=== PATIENT | female | born 1995 | race Caucasian/White ===

== ENCOUNTER 2016-09-13 03:49 | Emergency (ER) | payer BC, OTHER ==
[~2016-09-13] VITALS: Ht 172.7 cm; Wt 98.0 kg
[~2016-09-13 03:49] MED LIST: PREN1CHW7 PO
[2016-09-13 03:53] VITALS: BP 128/87; PULSE 97; RESP 16; TEMP 98.6; O2SAT 98
[2016-09-13 04:29] VITALS: O2SAT 100
[2016-09-13 04:34] LABS: AUTOMATED NEUTROPHIL # 6.7 TH/MM3 (1.8-7.7); BASOPHIL % 0.4 % (0.0-2.0); EOSINOPHIL # 0.2 TH/MM3 (0-0.4); EOSINOPHIL % 1.5 % (0.0-4.0); HEMATOCRIT 32.4 % (35.0-46.0); LYMPH % 20.8 % (9.0-44.0); LYMPHOCYTE # 2.1 TH/MM3 (1.0-4.8); MEAN CELL VOLUME 94.2 FL (80.0-100.0); MEAN CORPUSCULAR HEMOGLOBIN 32.1 PG (27.0-34.0); MONO % 11.6 % (0.0-8.0); NEUT % 65.7 % (16.0-70.0); PLATELET COUNT 150 TH/MM3 (150-450); RED BLOOD COUNT 3.43 MIL/MM3 (4.00-5.30); RED CELL DISTRIBUTION WIDTH 13.4 % (11.6-17.2); WHITE BLOOD COUNT 10.2 TH/MM3 (4.0-11.0)
--- NOTE | 2016-09-13 04:34 | PD ---
HPI Chief Complaint: Edema Time Seen by Provider: 04:07 Travel History International Travel<30 days: No Contact w/Intl Traveler<30days: No Traveled to known affect area: No History of Present Illness HPI The patient is a 20 year old female who is currently at 34 weeks gestation who presents to the [facility] emergency department with a history of right lower extremity swelling and calf pain. The patient reports that the swelling began 3 weeks ago, however over the last day she's noticed a progressively getting worse and associated with an aching sensation with walking. The patient reports that it feels like a charley horse in her calf. She reports that her RIPPER OPERATOR is at the [facility] practice. She denies having any chest pain. She reports that she does have some shortness of breath with exertion that she attributes to the and pressure on her diaphragm. She denies having any vaginal bleeding or vaginal discharge. She denies having any abdominal pain. She reports that she has been feeling the baby move well. She denies having any recent fevers, cough, congestion, neck pain, vomiting, diarrhea, urinary symptoms, or neurologic symptoms. [facility] Past Medical History Narrative Medical The patient's past medical history is significant for anxiety. Medical History: Denies Significant Hx Diminished Hearing: No Influenza Vaccination: No ?: : 1 : 1 Past Surgical History Narrative Surgical The patient's past surgical history is reportedly none. Social History Alcohol Use: No Tobacco Use: No Substance Use: No Allergies-Medications (Allergen,Severity, Reaction): Coded Allergies: Codeine (Unverified Allergy, Severe, Rash, 09/13/16) ALSO NAUSEA Reported Meds & Prescriptions Reported Meds & Active Scripts Active Macrobid (Nitrofurantoin Monoh/Nitrofur Macro) 100 Mg Cap 100 Mg PO BID Vitafol Ultra 29-0.6-0.4-200 mg ( Vit W/ Fe Polysacch C) 1 Cap Cap Review of Systems Except as stated in HPI: all other systems reviewed are Neg General / Constitutional: No: Fever Eyes: No: Visual changes HENT: No: Headaches, Congestion Cardiovascular: Positive: Dyspnea on exertion, No: Chest Pain or Discomfort Respiratory: No: Cough, Shortness of Breath Gastrointestinal: No: Nausea, Vomiting, Diarrhea, Abdominal Pain Genitourinary: No: Dysuria Musculoskeletal: Positive: Myalgias, Edema, Pain Skin: No Rash Neurologic: No: Weakness Psychiatric: No: Depression Endocrine: No: Polydipsia Hematologic/Lymphatic: No: Easy Bruising Physical Exam Narrative General: The patient is a well-developed well-nourished female in no acute distress. Head and Neck exam: Head is normocephalic atraumatic. Eyes: EOMI, pupils are equal round and reactive to light. Nose: Midline septum with pink mucous membranes Mouth: Dentition unremarkable. Moist mucus membranes. Posterior oropharynx is not erythematous. No tonsillar hypertrophy. Uvula midline. Airway patent. Neck: No palpable lymphadenopathy. No nuchal rigidity. No thyromegaly. Cardiovascular: Regular rate and rhythm without murmurs, gallops, or rubs. Lungs: Clear to auscultation bilaterally. No wheezes, rhonchi, or rales. Abdomen: Soft, distended related to with the fundus well above the umbilicus without tenderness to palpation in all 4 quadrants of the abdomen. No guarding, rebound, or rigidity. Normal bowel sounds are audible. No tenderness on palpation of McBurney's point. Extremities: No clubbing or cyanosis. The patient has 1+ pitting edema of the right lower extremity, trace edema left lower extremity. The patient has calf tenderness on palpation of the right side. 2+ pulses in all 4 extremities. No palpable cords. The patient has a positive Homans sign on the right. Back: No spinous process tenderness to palpation. No costovertebral angle tenderness to palpation. Neurologic Exam: Grossly nonfocal. Skin Exam: No rash noted. Intact skin that is warm and dry. Data Data Last Documented VS Vital Signs Date Time Temp Pulse Resp B/P Pulse Ox O2 Delivery O2 Flow Rate FiO2 09/13/16 04:29 100 09/13/16 03:53 98.6 97 16 128/87 Orders Us Leg Venous Doppler (09/13/16 04:09) Complete Blood Count With Diff (09/13/16 04:09) Comprehensive Metabolic Panel (09/13/16 04:09) Prothrombin Time / Inr (Pt) (09/13/16 04:09) Act Partial Throm Time (Ptt) (09/13/16 04:09) C-Reactive Protein (Crp) (09/13/16 04:09) Thyroid Stimulating Hormone (09/13/16 04:09) Iv Access Insert/Monitor (09/13/16 04:09) Ecg Monitoring (09/13/16 04:09) Oximetry (09/13/16 04:09) Ed Urine Pregnancytest Poc (09/13/16 04:09) Urinalysis - C+S If Indicated (09/13/16 04:36) Nitrofurantoin Monohyd Macrocr (Macrobid (09/13/16 06:15) Labs Laboratory Tests Test 09/13/16 09/13/16 04:15 05:15 White Blood Count 10.2 TH/MM3 Red Blood Count 3.43 MIL/MM3 Hemoglobin 11.0 GM/DL Hematocrit 32.4 % Mean Corpuscular Volume 94.2 FL Mean Corpuscular Hemoglobin 32.1 PG Mean Corpuscular Hemoglobin 34.0 % Concent Red Cell Distribution Width 13.4 % Platelet Count 150 TH/MM3 Mean Platelet Volume 9.2 FL Neutrophils (%) (Auto) 65.7 % Lymphocytes (%) (Auto) 20.8 % Monocytes (%) (Auto) 11.6 % Eosinophils (%) (Auto) 1.5 % Basophils (%) (Auto) 0.4 % Neutrophils # (Auto) 6.7 TH/MM3 Lymphocytes # (Auto) 2.1 TH/MM3 Monocytes # (Auto) 1.2 TH/MM3 Eosinophils # (Auto) 0.2 TH/MM3 Basophils # (Auto) 0.0 TH/MM3 CBC Comment AUTO DIFF Differential Comment AUTO DIFF CONFIRMED Prothrombin Time 10.1 SEC Prothromb Time International 0.9 RATIO Ratio Activated Partial 26.4 SEC Thromboplast Time Sodium Level 137 MEQ/L Potassium Level 3.7 MEQ/L Chloride Level 107 MEQ/L Carbon Dioxide Level 24.1 MEQ/L Anion Gap 6 MEQ/L Blood Urea Nitrogen 11 MG/DL Creatinine 0.50 MG/DL Estimat Glomerular Filtration 154 ML/MIN Rate Random Glucose 91 MG/DL Calcium Level 8.1 MG/DL Total Bilirubin 0.3 MG/DL Aspartate Amino Transf 27 U/L (AST/SGOT) Alanine Aminotransferase 55 U/L (ALT/SGPT) Alkaline Phosphatase 89 U/L C-Reactive Protein LESS THAN 0.29 MG/DL Total Protein 6.4 GM/DL Albumin 2.6 GM/DL Thyroid Stimulating Hormone 2.790 uIU/ML 3rd Gen Urine Color YELLOW Urine Turbidity HAZY Urine pH 7.0 Urine Specific Bolt 1.014 Urine Protein NEG mg/dL Urine Glucose (UA) NEG mg/dL Urine Ketones NEG mg/dL Urine Occult Blood NEG Urine Nitrite NEG Urine Bilirubin NEG Urine Urobilinogen LESS THAN 2.0 MG/DL Urine Leukocyte Esterase TRACE Urine RBC 1 /hpf Urine WBC 8 /hpf Urine Squamous Epithelial 19 /hpf Cells Urine Renal Epithelial Cells <1 /hpf Urine Amorphous Sediment RARE Urine Bacteria RARE /hpf Urine Mucus FEW /lpf Microscopic Urinalysis Comment CULT NOT INDICATED MDM Medical Decision Making Medical Screen Exam Complete: Yes Emergency Medical Condition: Yes Medical Record Reviewed: Yes Interpretation(s) Last Impressions Lower Extremity Ultrasound 09/13/16 0409 Signed Impressions: Service Date/Time: Tuesday, September 13, 2016 04:36 - CONCLUSION: Normal examination. Zeyad Villalta MD Differential Diagnosis DVT, versus valvular abnormality in the veins of the leg causing edema, versus hypoalbuminemia, versus edema related to , versus preeclampsia Narrative Course During the course of the patients emergency department visit, the patients history, examination, and differential diagnosis were reviewed with the patient. The patient had IV access obtained and blood work sent for analysis. The patient was put on a gambling monitor with oximetry and blood pressure monitoring. The patients laboratory studies were reviewed and remarkable for a white count of 10.2, hemoglobin 11, platelets 150 with 11.6 monocytes. CMP is remarkable for a calcium of 8.1, ALT 55, C-reactive protein less than 0.9, albumin 2.6, TSH 2.79, PT 10.1, PTT 26.4, urinalysis shows hazy urine trace leukocyte esterase 8 WBCs rare bacteria. The patient was given Macrobid 100 mg by mouth 1. Radiology studies were reviewed and remarkable for an ultrasound of the right lower extremity that shows no evidence of DVT. The patient has no protein in her urine to suggest preeclampsia and her blood pressure has been normal throughout her observation in the emergency department. I suspect that the patient's lower extremity edema is related to a combination of hypoalbuminemia and . The patient was instructed regarding increasing the protein in her diet. The patient was instructed to elevate her legs frequently and wear compression stockings if she is standing for a prolonged period of time. The patient will be discharged home with a prescription for Macrobid for bacteriuria and The patient is resting comfortably and feels better, is alert and in no distress. The patients results and examination findings were discussed with the patient. The repeat examination is unremarkable and benign. The history, exam, diagnostic testing, and current condition do not suggest any significant pathology to warrant further testing, continued ED treatment, admission, or surgical evaluation at this point. The vital signs have been stable. The patient does not have uncontrollable pain, intractable vomiting, or other significant symptoms. The patient's condition is stable and appropriate for discharge. The patient will pursue further outpatient evaluation with a primary care physician or other designated or consulting physician as indicated in the discharge instructions. The patient expressed understanding and was agreeable with this plan. Diagnosis Primary Impression: Hypoalbuminemia Additional Impressions: Bilateral lower extremity edema Urinary tract infection affecting Referrals: Terrestrial Ecologist Patient Instructions: General Instructions, Leg Edema (ED), Urinary Tract Infection in (ED) Additional Instructions: Wear compression stockings when you're standing for a prolonged period of time. Elevate your legs frequently. Avoid salty foods. Med/Other Pt SpecificInfo: Prescription(s) given Scripts Nitrofurantoin Monohydrate Macrocrystals (Macrobid)100 Mg [id number] Mg PO BID #19 CAP Ref 0 Prov:Jaylin Tovar MD 09/13/16 Disposition: 01 DISCHARGE HOME Condition: Stable Jaylin Tovar MD Sep 13, 2016 04:34
[2016-09-13 04:37] LABS: HEMO FLAGS AUTO DIFF
[2016-09-13 04:41] LABS: APTT (PATIENT) 26.4 SEC (24.3-30.1); INTERNATIONAL NORMALIZED RATIO 0.9 RATIO; PROTHROMBIN TIME - PATIENT 10.1 SEC (9.8-11.6)
[2016-09-13 04:54] LABS: ANION GAP 6 MEQ/L (5-15); AST (GOT) 27 U/L (15-37); BICARBONATE 24.1 MEQ/L (21.0-32.0); BLOOD UREA NITROGEN 11 MG/DL (7-18); CHLORIDE 107 MEQ/L (98-107); GLOMERULAR FILTRATION RATE 154 ML/MIN (>89); POTASSIUM 3.7 MEQ/L (3.5-5.1); SODIUM (NA) 137 MEQ/L (136-145)
[2016-09-13 04:55] LABS: ALT (GPT) 55 U/L (10-53)
[2016-09-13 05:04] LABS: ALKALINE PHOSPHATASE 89 U/L (45-117); TOTAL BILIRUBIN ADULT 0.3 MG/DL (0.2-1.0)
--- NOTE | 2016-09-13 05:13 | RADRPT ---
EXAM DATE/TIME: 09/13/2016 04:36 [place] COMPARISON: No previous studies available for comparison. INDICATIONS : Right leg swelling. MEDICAL HISTORY : . SURGICAL HISTORY : None. ENCOUNTER: Initial ACUITY: 3 weeks PAIN SCORE: 3/10 LOCATION: Right leg. TECHNIQUE: Venous ultrasound of the leg was performed from the inguinal ligament to the proximal calf. Real-iraida e, color Doppler and spectral tracing, compression and augmentation techniques were used. FINDINGS: There is normal compressibility of the deep venous system from the inguinal region to the proximal ca lf. No echogenic clot is seen in the lumen of the common femoral, femoral, popliteal, and posterior tibial veins. There is a normal response of the venous system to proximal and distal augmentation an d respiration. CONCLUSION: Normal examination. Zeyad Villalta MD on September 13, 2016 at 5:11 Board Certified Radiologist. This report was verified electronically.
[2016-09-13 05:14] LABS: SCAN/DIFF AUTO DIFF CONFIRMED
[2016-09-13 05:52] LABS: BACTERIA, URINE RARE /hpf; BLOOD, URINE NEG (NEG); COMMENT (UR) CULT NOT INDICATED; CULTURE IF INDICATED CULT NOT INDICATED; GLUCOSE,URINE NEG (NEG); KETONE, URINE NEG (NEG); MUCUS URINE FEW /lpf (OCC); NITRITE,URINE NEG (NEG); RENAL EPITHELIAL CELLS <1 /hpf; SQUAMOUS EPITHELIAL CELL URINE 19 /hpf (0-5); URINE COLOR YELLOW (YELLW/STRAW)
[2016-09-13] MEDS ORDERED: MACR100C2 PO (06:14)
[2016-09-13] MEDS ORDERED: NITROFURANTOIN MONOHYD MACROCR 100 MG CAP PO ONE (06:15)
== END 2016-09-13 06:36 | disposition home or self-care (01) ==
LOC: NEPE 03:49
DX: O12.03 Gestational edema, third trimester (principal); O99.283 Endocrine, nutritional and metabolic diseases complicating pregnancy, third trimester; O23.43 Unspecified infection of urinary tract in pregnancy, third trimester; N39.0 Urinary tract infection, site not specified; E88.09 Other disorders of plasma-protein metabolism, not elsewhere classified; Z3A.34 34 weeks gestation of pregnancy
CPT/HCPCS: 80053; 81001; 84443; 84703; 85025; 85610; 85730; 86140; 93971; 99285

== ENCOUNTER → 2016-10-08 | Emergency (ER) | payer BC, OTHER ==
[~2016-10-08] MED LIST changes: +IBUP-232 PO; -PREN1CHW7 PO; +PREN29TA PO; +SENN1TAB PO
--- NOTE | 2016-10-09 00:44 | PD ---
HPI Chief Complaint 37 weeks and 1 day gestation, contractions Date Seen: Oct 09, 2016 Time Seen: 00:45 Travel History International Travel<30 Days: No Contact w/Intl Traveler<30Days: No Known Affected Area: No History of Present Illness HPI Pt is a 20 yo at 37 weeks and 1 day who presents on account of frequent and painful contractions. Contractions less intense since arriving on OB Triage. No vaginal bleeding or leaking. Active movements. [facility], last visit 10-02-2016 and was noted to be 1cm cervical dilatation. History Past Medical History Medical History: Denies Significant Hx Past Surgical History Surgical History: No Previous Surgery Family History Family History: Negative Social History Alcohol Use: No Tobacco Use: No Substance Abuse: No Allergies-Medications (Allergen,Severity, Reaction): Coded Allergies: codeine (Unverified Allergy, Severe, Rash, 10/02/16) ALSO NAUSEA Home Meds Active Scripts Vit W/ Fe Polysacch C (Vitafol Ultra 29-0.6-0.4-200 mg) 1 Cap Cap Prov:Sydnee Dean CNM TICKET DISPATCHER 04/04/16 Review of Systems Except as stated in HPI: all other systems reviewed are Neg Physical Exam Narrative GENERAL: Well-nourished, well-developed patient. SKIN: Warm and dry. HEAD: Normocephalic and atraumatic. EYES: No scleral icterus. No injection or drainage. ENT: No nasal drainage noted. Mucous membranes pink. Airway patent. NECK: Supple, trachea midline. No JVD. CARDIOVASCULAR: Regular rate and rhythm without murmurs, gallops, or rubs. RESPIRATORY: Breath sounds equal bilaterally. No accessory muscle use. BREASTS: Bilateral exam showed no masses , no retractions, no nipple discharge. ABDOMEN/GI: Abdomen soft, non-tender, bowel sounds present, no rebound, no guarding Gravid to [-] weeks size Fundal Height: [-] GENITOURINARY: External Genitalia: intact and normal in appearance BUS glands: [wnl-] Cervix: [soft] Dilatation: [1cm] Effacement: [50%] Station: [-3] Presentation: [vertex] Membranes: [intact] Uterine Contractions: [irregular-] FHT's: Category: [1] Baseline: [-] Reactive: [-] Variability: [-] Decels: [-] EXTREMITIES: No cyanosis or edema. BACK: Nontender without obvious deformity. No CVA tenderness. NEUROLOGICAL: Awake and alert. Motor and sensory grossly within normal limits. Five out of 5 muscle strength in all muscle groups. Normal speech. Data Data Vital Signs Reviewed: Yes Group B Strep: Negative MDM Medical Record Reviewed: Yes Interpretation(s) false labor. no cervical change from exam 1 week ago Plan labor precautions. Will call office to be seen if undelivered by 10/11/2016 Diagnosis Diagnosis: Primary Impression: False labor after 37 weeks of gestation without delivery Disposition: DISCHARGE HOME Condition: Stable Ted Shanks MD Oct 09, 2016 00:44
== END | disposition home or self-care (01) ==
LOC: HOBED 23:55
DX: O47.1 False labor at or after 37 completed weeks of gestation (principal); Z3A.37 37 weeks gestation of pregnancy
CPT/HCPCS: 59025

== ENCOUNTER 2016-10-11 12:44 | Emergency (ER) | payer BC, OTHER ==
[~2016-10-11] VITALS: Ht 175.3 cm; Wt 103.4 kg
--- NOTE | 2016-10-11 13:32 | PD ---
HPI Chief Complaint Decreased movement Date Seen: Oct 11, 2016 Travel History International Travel<30 Days: No Contact w/Intl Traveler<30Days: No Known Affected Area: No History of Present Illness HPI Mrs. Draper is a 20-year-old at 38/4 weeks of presenting to the OB ED with a chief complaint of decreased movement. Patient states that she woke up around 5 AM this morning and did not feel baby move until presenting to the OB ED at approximately 1230. She states that this for her has been uncomplicated with normal ultrasounds confirming her gestational age. She denies any vaginal bleeding, vaginal discharge, or dysuria. She also denies any headaches, blurred vision, right upper quadrant pain, or other neurological symptoms. She has no other complaints at this time and ROS is otherwise negative. Weeks Gestation: 38 Para: 0 : 1 History Past Medical History Medical History: Denies Significant Hx Obstetric History Obstetric History Past Surgical History Surgical History: No Previous Surgery Family History Family History: Negative Social History Alcohol Use: No Tobacco Use: No Substance Abuse: No Allergies-Medications (Allergen,Severity, Reaction): Coded Allergies: codeine (Unverified Allergy, Severe, Rash, 10/02/16) ALSO NAUSEA Home Meds Active Scripts Vit W/ Fe Polysacch C (Vitafol Ultra 29-0.6-0.4-200 mg) 1 Cap Cap Prov:Sydnee Dean CNM INDEPENDENT LIVING SPECIALIST 04/04/16 Review of Systems Except as stated in HPI: all other systems reviewed are Neg Physical Exam Narrative GENERAL: Well-nourished, well-developed patient. SKIN: Warm and dry. HEAD: Normocephalic and atraumatic. EYES: No scleral icterus. No injection or drainage. ENT: No nasal drainage noted. Mucous membranes pink. Airway patent. NECK: Supple, trachea midline. No JVD. CARDIOVASCULAR: Regular rate and rhythm without murmurs, gallops, or rubs. RESPIRATORY: Breath sounds equal bilaterally. No accessory muscle use. BREASTS: Bilateral exam showed no masses , no retractions, no nipple discharge. ABDOMEN/GI: Abdomen soft, non-tender, bowel sounds present, no rebound, no guarding Gravid to 38 weeks size GENITOURINARY: External Genitalia: intact and normal in appearance Cervix: Posterior Dilatation: 0-1cm Effacement: 50% Station: -3 Uterine Contractions: Q3-4m, patient unable to feel contractions FHT's: Category: 1 Baseline: 150 Reactive: Positive Variability: Moderate Decels: None EXTREMITIES: No cyanosis or edema. BACK: Nontender without obvious deformity. No CVA tenderness. NEUROLOGICAL: Awake and alert. Motor and sensory grossly within normal limits. Five out of 5 muscle strength in all muscle groups. Normal speech. Data Data Vital Signs Reviewed: Yes MDM Medical Record Reviewed: Yes Plan Mrs. Draper is a 20-year-old at 38/4 weeks of presenting to the OB ED with a chief complaint of decreased movement. 1. IUP at 38 weeks -Continue routine OB care -Encourage by mouth hydration -Continue vitamin 2. Decreased movement - monitoring shows reactive strip without decelerations, FHTs 150s -Mom now states that she is able to fill baby move -BPP not indicated at this time Discharge: Patient will be discharged home today. Discussed labor precautions and when to return to OB ED. Discussed activity monitoring with patient. Patient follow-up with GRAB OPERATOR in 1 week. DW: Dr. Robles Diagnosis Diagnosis: Primary Impression: 38 weeks gestation of Additional Impression: Decreased movement Disposition: 01 DISCHARGE HOME Condition: Stable Hector Joe MD R2 Oct 11, 2016 13:32
== END 2016-10-11 15:04 | disposition home or self-care (01) ==
LOC: HOBED 12:44
DX: O36.8130 Decreased fetal movements, third trimester, not applicable or unspecified (principal); Z3A.38 38 weeks gestation of pregnancy; Z88.5 Allergy status to narcotic agent
CPT/HCPCS: 99283

== ENCOUNTER 2016-10-18 20:43 | Emergency (ER) | payer BC, OTHER ==
--- NOTE | 2016-10-18 21:59 | PD ---
HPI Chief Complaint Leakage of fluid Travel History International Travel<30 Days: No Contact w/Intl Traveler<30Days: No Known Affected Area: No History of Present Illness HPI G1 at 39w d presents with c/o LOF. Denies VB/contractions. Good movement. Denies problems this . History Past Medical History Medical History: Denies Significant Hx Past Surgical History Surgical History: No Previous Surgery Family History Family History: Negative Social History Alcohol Use: No Tobacco Use: No Allergies-Medications (Allergen,Severity, Reaction): Coded Allergies: codeine (Unverified Allergy, Severe, Rash, 10/12/16) ALSO NAUSEA Home Meds Active Scripts Vit W/ Fe Polysacch C (Vitafol Ultra 29-0.6-0.4-200 mg) 1 Cap Cap Prov:Sydnee Dean CNM MOTEL FOOD SERVICE SUPERVISOR 04/04/16 Physical Exam Narrative GENERAL: Well-nourished, well-developed patient. SKIN: Warm and dry. HEAD: Normocephalic and atraumatic. EYES: No scleral icterus. No injection or drainage. ENT: No nasal drainage noted. Mucous membranes pink. Airway patent. NECK: Supple, trachea midline. No JVD. CARDIOVASCULAR: Regular rate and rhythm without murmurs, gallops, or rubs. RESPIRATORY: Breath sounds equal bilaterally. No accessory muscle use. BREASTS: Bilateral exam showed no masses , no retractions, no nipple discharge. ABDOMEN/GI: Abdomen soft, non-tender, bowel sounds present, no rebound, no guarding Gravid to [-] weeks size Fundal Height: [-] GENITOURINARY: External Genitalia: intact and normal in appearance BUS glands: [-] Cervix: [per RN exam] Dilatation: [0] Effacement: [50] Station: [-3] Presentation: [-] Membranes: [intact or ruptured] Uterine Contractions: [occasional] FHT's: Category: [1] Baseline: [140s] Reactive: [yes] Variability: [moderate] Decels: [none] EXTREMITIES: No cyanosis or edema. BACK: Nontender without obvious deformity. No CVA tenderness. NEUROLOGICAL: Awake and alert. Motor and sensory grossly within normal limits. Five out of 5 muscle strength in all muscle groups. Normal speech. Data Data Labs AmniSure- negative MDM Interpretation(s) IUP at 39w d, no leakage of fluid. Plan Will monitor and recheck, d/c home if no cervical change. Labor precautions. F /u with OB provider as scheduled in the morning. All questions answered. Diagnosis Diagnosis: Primary Impression: 39 weeks gestation of Additional Impression: No leakage of amniotic fluid into vagina Disposition: 01 DISCHARGE HOME Condition: Good Zuleyma Richards MD Oct 18, 2016 21:59
== END 2016-10-18 22:20 | disposition home or self-care (01) ==
LOC: HOBED 20:43
DX: O26.893 Other specified pregnancy related conditions, third trimester (principal); Z3A.39 39 weeks gestation of pregnancy
CPT/HCPCS: 59025; 84112

== ENCOUNTER → 2016-10-23 | Outpatient (CLI) | payer BC, OTHER | LOC: HPND 14:07 | PROVIDERS: ATTEND Obstetrics & Gynecology | DX: O36.63X0 Maternal care for excessive fetal growth, third trimester, not applicable or unspecified (principal); O48.0 Post-term pregnancy; Z3A.40 40 weeks gestation of pregnancy | CPT/HCPCS: 76816; 76818 ==

== ENCOUNTER 2016-10-26 15:55 | Inpatient (IN) | payer BC, OTHER ==
[~2016-10-26] VITALS: Ht 175.3 cm; Wt 109.0 kg
[2016-10-26] MEDS ORDERED: SODIUM CHLOR 0.9% 1000 ML INJ 1,000 ML OTHER PRN (16:36)
--- NOTE | 2016-10-26 16:39 | HHI.HP ---
HPI Chief Complaint Scheduled Induction Date Seen: Oct 26, 2016 Travel History International Travel<30 Days: No Contact w/Intl Traveler<30Days: No History of Present Illness HPI Mrs. Che is a 21 y/o presenting at 40/4 weeks gestation for her scheduled induction. Patient had an US on 10/23 and found to have a EFBW of 8lb 15oz. Induction was recommended at that time. Patient endorses good movement and denies any dysuria, vaginal discharge, loss of fluid, or vaginal bleeding. She has no other complaints and denies a complete review of systems. [facility] and states her thus far has been uncomplicated. Weeks Gestation: 40 Para: 0 : 1 History Past Medical History Medical History: Denies Significant Hx Obstetric History Obstetric History Past Surgical History Surgical History: No Previous Surgery Family History Family History: Negative Social History Alcohol Use: No Tobacco Use: No Substance Abuse: No Allergies-Medications (Allergen,Severity, Reaction): Coded Allergies: codeine (Unverified Allergy, Severe, Rash, 10/24/16) ALSO NAUSEA Home Meds Discontinued Scripts Vit W/ Fe Polysacch C (Vitafol Ultra 29-0.6-0.4-200 mg) 1 Cap Cap Prov:Sydnee Dean CNM 911 EMERGENCY DISPATCHER 04/04/16 Review of Systems Except as stated in HPI: all other systems reviewed are Neg Physical Exam Narrative GENERAL: Well-nourished, well-developed patient. SKIN: Warm and dry. HEAD: Normocephalic and atraumatic. EYES: No scleral icterus. No injection or drainage. ENT: No nasal drainage noted. Mucous membranes pink. Airway patent. NECK: Supple, trachea midline. No JVD. CARDIOVASCULAR: Regular rate and rhythm without murmurs, gallops, or rubs. RESPIRATORY: Breath sounds equal bilaterally. No accessory muscle use. ABDOMEN/GI: Abdomen soft, non-tender, bowel sounds present, no rebound, no guarding Gravid to 40 weeks GENITOURINARY: External Genitalia: intact and normal in appearance Cervix: Posterior Dilatation: 0-1 cm Effacement: 50% Station: -3 Presentation: Vertex Membranes: Intact Uterine Contractions: None. FHT's: Category: 1 Baseline: 140s Reactive: Positive Variability: Moderate Decels: Negative EXTREMITIES: No cyanosis or edema. BACK: Nontender without obvious deformity. No CVA tenderness. NEUROLOGICAL: Awake and alert. Motor and sensory grossly within normal limits. Five out of 5 muscle strength in all muscle groups. Normal speech. Caprini VTE Risk Assessment Caprini VTE Risk Assessment: Mod/High Risk (score >= 2) Caprini Risk Assessment Model Point Value = 1 Point Value = 2 Point Value = 3 Point Value = 5 Age 41-60 Minor surgery BMI > 25 kg/m2 Swollen legs Varicose veins or History of unexplained or recurrent spontaneous Oral contraceptives or hormone replacement Sepsis (< 1 month) Serious lung disease, including pneumonia (< 1 month) Abnormal pulmonary function Acute myocardial infarction Congestive heart failure (< 1 month) History of inflammatory bowel disease Medical patient at bed rest Age 61-74 Arthroscopic surgery Major open surgery (> 45 min) Laparoscopic surgery (> 45 min) Malignancy Confined to bed (> 72 hours) Immobilizing plaster cast Central venous access Age >= 75 History of VTE Family history of VTE Factor V Leiden Prothrombin [id number] Lupus anticoagulant Anticardiolipin antibodies Elevated serum homocysteine Heparin-induced thrombocytopenia Other congenital or acquired thrombophilia Stroke (< 1 month) Elective arthroplasty Hip, pelvis, or leg fracture Acute spinal cord injury (< 1 month) Prophylaxis Regimen Total Risk Factor Score Risk Level Prophylaxis Regimen 0-1 Low Early ambulation 2 Moderate Order ONE of the following: *Sequential Compression Device (SCD) *Heparin 5000 units SQ BID 3-4 Higher Order ONE of the following medications: *Heparin 5000 units SQ TID *Enoxaparin/Lovenox 40 mg SQ daily (WT < 150 kg, CrCl > 30 mL/min) *Enoxaparin/Lovenox 30 mg SQ daily (WT < 150 kg, CrCl > 10-29 mL/min) *Enoxaparin/Lovenox 30 mg SQ BID (WT < 150 kg, CrCl > 30 mL/min) AND/OR *Sequential Compression Device (SCD) 5 or more Highest Order ONE of the following medications: *Heparin 5000 units SQ TID (Preferred with Epidurals) *Enoxaparin/Lovenox 40 mg SQ daily (WT < 150 kg, CrCl > 30 mL/min) *Enoxaparin/Lovenox 30 mg SQ daily (WT < 150 kg, CrCl > 10-29 mL/min) *Enoxaparin/Lovenox 30 mg SQ BID (WT < 150 kg, CrCl > 30 mL/min) AND *Sequential Compression Device (SCD) Data Data Vital Signs Reviewed: Yes Group B Strep: Negative Assessment/Plan Problem List: (1) 40 weeks gestation of ICD Codes: Z3A.40 - 40 weeks gestation of Status: Acute Assessment and Plan Mrs. Che is a 21 y/o presenting at 40/4 weeks gestation for her scheduled induction. 1. IUP at 40 weeks gestation -Continue routine antepartum care -Encourage by mouth hydration -FHT category 1 reassuring -GBS negative 2. Scheduled induction of labor -Patient admitted for induction, orders placed -Cytotec induction ordered per protocol -M.D. to be notified prior to Oxytocin induction -Clear liquid diet SDW: Dr. Lucero Discharge Planning Pending clinical course Hector Joe MD R2 Oct 26, 2016 16:39
[2016-10-26] MEDS ORDERED: MISOPROSTOL 25 MCG SUPP VAGINAL ONE (16:45)
[2016-10-26] MEDS ORDERED: SODIUM CHLORIDE 0.9% FLUSH 10 ML FLUSH IV FLUSH PRN (16:45)
[2016-10-26] MEDS ORDERED: PREN29TA PO (16:51)
[2016-10-26] MEDS ORDERED: LACTATED RINGER'S 1000 ML INJ 1,000 ML IV PRN (17:02)
[2016-10-26] MEDS: LACTATED RINGER'S 1000 ML INJ 1,000 ML IV SCH ×2 (17:02→19:17)
[2016-10-26] MEDS ORDERED: LIDOCAINE HCL 1% 50 ML VIAL INFIL PRN (17:15)
[2016-10-26] MEDS ORDERED: CITRIC ACID-SODIUM CITRATE LIQ 30 ML UDC PO SCH (17:15)
[2016-10-26] MEDS ORDERED: MINERAL OIL 10 ML VIAL TOPICAL PRN (17:15)
[2016-10-26] MEDS ORDERED: OXYTOCIN 30 UNITS-500ML PREMIX 500 ML IV ONE (17:15)
[2016-10-26] MEDS ORDERED: LIDOCAINE HCL 1% 50 ML VIAL I-DERMAL PRN (17:15)
[2016-10-26] MEDS ORDERED: SODIUM CHLORID 0.9% 500 ML INJ 500 ML IV PRN (17:15)
[2016-10-26 17:20] LABS: AUTOMATED NEUTROPHIL # 5.5 TH/MM3 (1.8-7.7); BASOPHIL % 0.2 % (0.0-2.0); EOSINOPHIL # 0.1 TH/MM3 (0-0.4); EOSINOPHIL % 1.2 % (0.0-4.0); HEMATOCRIT 34.9 % (35.0-46.0); HEMO FLAGS DIFF FINAL; LYMPH % 22.9 % (9.0-44.0); LYMPHOCYTE # 2.1 TH/MM3 (1.0-4.8); MEAN CELL VOLUME 93.5 FL (80.0-100.0); MEAN CORPUSCULAR HEMOGLOBIN 31.3 PG (27.0-34.0); MEAN CORPUSCULAR HGB CONC 33.5 % (32.0-36.0); MONO % 13.9 % (0.0-8.0); NEUT % 61.8 % (16.0-70.0); PLATELET COUNT 134 TH/MM3 (150-450); RED BLOOD COUNT 3.73 MIL/MM3 (4.00-5.30); RED CELL DISTRIBUTION WIDTH 14.1 % (11.6-17.2)
[2016-10-26] MEDS ORDERED: SODIUM CHLOR 0.9% 1000 ML INJ 1,000 ML IV PRN (17:22)
[2016-10-26 17:25] LABS: BLOOD, URINE NEG (NEG); COMMENT (UR) CULT NOT INDICATED; CULTURE IF INDICATED CULT NOT INDICATED; GLUCOSE,URINE NEG (NEG); KETONE, URINE NEG (NEG); NITRITE,URINE NEG (NEG); PH, URINE 6.5 (5.0-8.5); SQUAMOUS EPITHELIAL CELL URINE 5 /hpf (0-5); URINE COLOR YELLOW (YELLW/STRAW)
--- NOTE | 2016-10-26 19:10 | HHI.HP ---
History & Physical H&P Attending Note Patient is a at 40.4 weeks who is admitted for induction of labor. She is GBS negative. Of note on October 23 she had an ultrasound with estimated weight of 8 pounds and 15 ounces. However the patient is 5 feet 9 inches tall. We discussed the risks, benefits, and alternatives to induction of labor. We discussed that induction of labor caries with an increased risk of delivery. In addition we discussed that a large infant may carry with an increased risk of delivery however she does not meet criteria for us to recommend delivery at this time we discuss the risks associated with vaginal delivery including shoulder dystocia with the risk of permanent irreversible neurological damage, brain damage, and her although these risks are small. We discussed that if her labor does not progress appropriately she would be a candidate for a delivery. We discussed that the ultrasound weight caries with an air of measurement at this gestational age. We discussed the methods of induction of labor and the patient is in agreement with Cytotec. The patient has been admitted for Cytotec induction and accepts the right risks associated with a vaginal delivery. Mercedez Lucero MD Oct 26, 2016 19:10
[2016-10-26] MEDS ORDERED: MISOPROSTOL 25 MCG SUPP VAGINAL PRN (20:45)
[2016-10-26] MEDS ORDERED: SODIUM CHLORIDE 0.9% FLUSH 10 ML FLUSH IV FLUSH SCH (21:00)
--- NOTE | 2016-10-26 23:41 | PD.LABORPN ---
Subjective Subjective Patient is resting comfortably, she feels occasional contractions. She feels good movement. She has no complaints this time Objective Objective Pelvic Exam: SVE 1/25%/-3, soft FHT's: heart tones with baseline in the 120s, good accelerations, no decelerations, and moderate long-term variability. Category 1 heart rate tracing Weeks Gestation: 40 Gest Age Assessed Date: Oct 26, 2016 Gest Age Assessed Time: 23:39 Pt started active labor?: No Medical induction of labor?: Yes Medical induction start date: Oct 26, 2016 Medical induction start time: 17:00 Artificial rupture of membrane: No Assessment/Plan Problem List: (1) 40 weeks gestation of ICD Codes: Z3A.40 - 40 weeks gestation of Status: Acute Plan: Assessment/plan: 1. IUP at 40.4 2. Induction of labor: Status post Cytotec 1, patient of melvin less than 3 times every 10 minutes so that can Cytotec placed. Has made cervical change from closed and thick to now 1 and 25% effaced. 3. GBS negative 4. well-being: Reassuring testing with reactive NST/category 1 heart rate tracing, continue EFM. Mercedez Lucero MD Oct 26, 2016 23:41
[2016-10-27] MEDS: LACTATED RINGER'S 1000 ML INJ 1,000 ML IV SCH ×2 (00:22→16:10)
[2016-10-27] MEDS ORDERED: OXYTOCIN 30 UNITS-500ML PREMIX 500 ML IV SCH ×2 (03:00→20:15)
--- NOTE | 2016-10-27 10:56 | PD.LABORPN ---
Subjective Subjective Pt having painful contractions. vaginal exam done with good progression. GBS neg. Objective Objective Pelvic Exam: Cervix: midposition Dilatation: 4 Effacement:80% Station: -2 Presentation: vertex Membranes: SROM Uterine Contractions: present, every 2-3 mins FHT's: Category: 1 Baseline: 140 Reactive: positive Variability: moderate Decels: none Weeks Gestation: 40 Gest Age Assessed Date: Oct 26, 2016 Gest Age Assessed Time: 23:39 Pt started active labor?: No Medical induction of labor?: Yes Medical induction start date: Oct 26, 2016 Medical induction start time: 17:00 Artificial rupture of membrane: No Assessment/Plan Problem List: (1) 40 weeks gestation of ICD Codes: Z3A.40 - 40 weeks gestation of Status: Acute Plan: Assessment/plan: 1. IUP at 40.4 2. Induction of labor: oxyticin per protocol, cervical change to 4 cm dilation 3. GBS negative 4. well-being: Reassuring testing with reactive NST/category 1 heart rate tracing, continue EFM. 5. epidural orders placed sdw Scarlet Coleman MD R1 Oct 27, 2016 10:56
[2016-10-27] MEDS ORDERED: fentaNYL 2MCG-BUPIV 0.125% INJ 100 ML ONE (10:57)
[2016-10-27] MEDS ORDERED: ePHEDrine/NS 25 MG/5 ML SYR IV PRN (14:45)
[2016-10-27] MEDS ORDERED: NO SYSTEM NARCOTICS PRN (14:45)
[2016-10-27] MEDS ORDERED: DO NOT ADMINISTER ANTICOAGULANTS PRN (14:45)
[2016-10-27] MEDS ORDERED: BUPIVACAINE HCL PF 0.25% 10 ML VIAL ONE (15:56)
[2016-10-27] MEDS ORDERED: MEASLES, MUMPS, RUBELLA VACCINE 0.5 ML VIAL SQ ONE (16:00)
[2016-10-27] MEDS ORDERED: DIPHTH/TETANUS/ACEL PERTUSSIS (BOOSTER) 0.5 ML VIAL/PFS IM ONE (16:00)
[2016-10-27] MEDS: fentaNYL 2MCG-BUPIV 0.125% 100 ML EPIDURAL SCH ×2 (16:08→16:09)
[2016-10-27 16:09] VITALS: RESP 18
[2016-10-27] MEDS ORDERED: LIDOCAINE HCL 1% PF 30 ML VIAL ONE (18:10)
[2016-10-27] MEDS ORDERED: ONDANSETRON ODT 4 MG TAB PO PRN (20:15)
[2016-10-27] MEDS ORDERED: SODIUM CHLORIDE 0.9% FLUSH 10 ML FLUSH IV FLUSH PRN (20:15)
[2016-10-27] MEDS ORDERED: DOCUSATE SODIUM 50 MG/SENNA 8.6 MG TAB PO PRN (20:15)
[2016-10-27] MEDS ORDERED: ZOLPIDEM TARTRATE 5 MG TAB PO PRN (20:15)
[2016-10-27] MEDS ORDERED: ALUMINUM/MAGNESIUM/SIMETH 30 ML CUP PO PRN (20:15)
[2016-10-27] MEDS ORDERED: WITCH HAZEL 50%/GLYCERIN 12.5% 40 PAD JAR TOPICAL PRN (20:15)
[2016-10-27] MEDS ORDERED: BENZOCAINE 20% TOPICAL SPRAY 60 ML CAN TOPICAL PRN (20:15)
--- NOTE | 2016-10-27 20:34 | PD.OB.DELI ---
Weeks gestation: 40 Gest age assessed date: Oct 26, 2016 Gest age assessed time: 23:39 Pt started active labor?: No Medical induction of labor?: Yes Medical induction start date: Oct 26, 2016 Medical induction start time: 17:00 Artificial rupture of membrane: No Anesthesia: Epidural Episiotomy: None Vaginal Delivery: Normal Presentation: Occiput anterior Nuchal Cord: x1 Delayed cord clamping (45 sec): Yes : Female Delivery date: Oct 27, 2016 Delivery time: 20:06 One Minute : 9 Five Minute : 9 Weight: 4045 Placenta: Spontaneous delivery Laceration: 1 deg Repair: Vicryl running Additional Information Delivery by Hector Jerome MD R2 Oct 27, 2016 20:34
[2016-10-27] MEDS ORDERED: GENTAMICIN INJ 100 MG in SODIUM CHLORIDE 0.9% INJ 100 ML IV ONE (21:00)
[2016-10-27] MEDS: SODIUM CHLORIDE 0.9% FLUSH 10 ML FLUSH IV FLUSH SCH (21:00)
--- NOTE | 2016-10-27 21:00 | HHI.OB ---
Subjective Post Day: 0 Remarks only one hour is spiked a temperature to 102. She was 100.3 right at delivery. We'll begin IV ampicillin gentamicin to cover for latent chorioamnionitis/of endomyometritis Objective Vitals/I&O Vital Signs Date Time Temp Pulse Resp B/P (MAP) Pulse Ox O2 Delivery O2 Flow Rate FiO2 10/27/16 16:09 18 10/27/16 16:08 18 10/27/16 10:57 18 Objective Remarks GENERAL: Well-nourished, well-developed patient. CARDIOVASCULAR: Regular rate and rhythm without murmurs, gallops, or rubs. RESPIRATORY: Breath sounds equal bilaterally. No accessory muscle use. ABDOMEN/GI: Abdomen soft, non-tender. Fundus: Firm, non-tender at umbilicus. GENITOURINARY: Light to moderate bleeding. EXTREMITIES: No cyanosis or edema, non-tender, without signs of DVT. Medications and IVs Current Medications Medications (Trade) Dose Ordered Sig/Randi Route Start Time Stop Time Status Last Admin Lactated Ringer's 1,000 ml @ 125 mls/hr Q8H IV 10/26/16 17:02 10/27/16 16:10 Lactated Ringer's 1,000 ml @ 3,000 mls/hr Q20M PRN IV 10/26/16 17:02 Sodium Chloride 1,000 ml @ 100 mls/hr Q10H PRN IV 10/26/16 17:22 (Xylocaine 1% Inj (50 ml)) 0.1 ml UNSCH X1 PRN I-DERMAL 10/26/16 17:15 10/29/16 17:14 (Bicitra Liq) 30 ml CAPSULE FILLER PO 10/26/16 17:15 10/30/16 17:14 (fentaNYL INJ) 50 mcg Q1H PRN IV PUSH 10/26/16 17:15 (fentaNYL INJ) 100 mcg Q1H PRN IV PUSH 10/26/16 17:15 10/27/16 09:55 (Xylocaine 1% Inj (50 ml)) 10 ml UNSCH X1 PRN INFIL 10/26/16 17:15 10/28/16 17:14 (Muri-Lube Oil) 10 ml UNSCH PRN TOPICAL 10/26/16 17:15 Oxytocin 500 ml @ 0 mls/hr TITRATE IV 10/27/16 03:00 10/27/16 06:32 Miscellaneous Information No systemic narcotics to be given except... UNSCH PRN .XX 10/27/16 14:45 10/28/16 14:44 Miscellaneous Information DO NOT ADMINISTER ANY ANTICOAGUL... UNSCH PRN .XX 10/27/16 14:45 10/28/16 14:44 Fentanyl/ Bupivacaine HCl 100 ml @ 10 mls/hr TITRATE EPIDURAL 10/27/16 15:00 10/27/16 16:09 (ePHEDrine/NS 25 MG/5 ML SYR) 10 mg UNSCH PRN IV 10/27/16 14:45 10/28/16 14:44 10/27/16 16:24 (NS Flush) 2 ml BID IV FLUSH 10/27/16 21:00 (NS Flush) 2 ml UNSCH PRN IV FLUSH 10/27/16 20:15 Oxytocin 500 ml @ 100 mls/hr CONTINUOUS IV 10/27/16 20:15 10/28/16 01:14 (Tylenol) 650 mg Q4H PRN PO 10/27/16 20:15 (Motrin) 600 mg Q6H PRN PO 10/27/16 20:15 (Americaine 20% Top Spr) 1 spray Q4H PRN TOPICAL 10/27/16 20:15 (Tucks Pads) 1 applic QID PRN TOPICAL 10/27/16 20:15 (Karen-Colace) 2 tab Q12H PRN PO 10/27/16 20:15 (Ambien) 5 mg HS PRN PO 10/27/16 20:15 (M-M-R Ii Inj) 0.5 ml ONCE ONCE SQ 10/27/16 16:00 10/27/16 16:01 (Boostrix Inj) 0.5 ml ONCE ONCE IM 10/27/16 16:00 10/27/16 16:01 (Mag-Al Plus Susp Liq) 15 ml Q8H PRN PO 10/27/16 20:15 (Zofran Odt) 4 mg Q6H PRN PO 10/27/16 20:15 Assessment/Plan Problem List: (1) 40 weeks gestation of ICD Codes: Z3A.40 - 40 weeks gestation of Status: Acute Plan: Assessment/plan: 1. IUP at 40.4 2. Induction of labor: oxyticin per protocol, cervical change to 4 cm dilation 3. GBS negative 4. well-being: Reassuring testing with reactive NST/category 1 heart rate tracing, continue EFM. 5. epidural orders placed sdw Dr. Robles Assessment and Plan Mrs. Che is a 21 y/o presenting at 40/4 weeks gestation for her scheduled induction. 1. IUP at 40 weeks gestation -Continue routine antepartum care -Encourage by mouth hydration -FHT category 1 reassuring -GBS negative 2. Scheduled induction of labor -Patient admitted for induction, orders placed -Cytotec induction ordered per protocol -M.D. to be notified prior to Oxytocin induction -Clear liquid diet SDW: Dr. Lucero Discharge Planning Pending clinical course Sumanth Robles II, MD Oct 27, 2016 21:00
[2016-10-27] MEDS: ACETAMINOPHEN 325 MG TAB PO PRN (21:30)
[2016-10-27] MEDS: AMPICILLIN INJ 2,000 MG in SODIUM CHLORIDE 0.9% INJ 100 ML IV SCH (21:58)
[2016-10-28] MEDS: LACTATED RINGER'S 1000 ML INJ 1,000 ML IV SCH (01:02)
[2016-10-28] MEDS: AMPICILLIN INJ 2,000 MG in SODIUM CHLORIDE 0.9% INJ 100 ML IV SCH ×3 (05:12→20:29)
[2016-10-28] MEDS: IBUPROFEN 600 MG TAB PO PRN ×3 (05:13→21:44)
[2016-10-28] MEDS: ACETAMINOPHEN 325 MG TAB PO PRN ×3 (05:13→21:44)
[2016-10-28] MEDS: GENTAMICIN/SOD CHL 80 MG/100 ML IV SCH ×3 (05:45→20:24)
[2016-10-28] MEDS ORDERED: GENTAMICIN INJ 80 MG in SODIUM CHLORIDE 0.9% INJ 100 ML IV SCH (06:00)
--- NOTE | 2016-10-28 08:28 | HHI.OB ---
Subjective Post Day: 1 Remarks Pt seen and examined this morning. day # 1 AFVSS overnight. Decreased lochia. Denies dysuria. No breast tenderness. She is feeding the baby via breast. Appetite good. No nausea or vomiting. Patient has not yet had a bowel movement, but has passed bowel gas. Ambulating well. Denies calf pain or shortness of breath. Otherwise, she is doing well this morning and has no other concerns. Objective Vitals/I&O Vital Signs Date Time Temp Pulse Resp B/P (MAP) Pulse Ox O2 Delivery O2 Flow Rate FiO2 10/27/16 16:09 18 10/27/16 16:08 18 10/27/16 10:57 18 Objective Remarks GENERAL: Well-nourished, well-developed patient. CARDIOVASCULAR: Regular rate and rhythm without murmurs, gallops, or rubs. RESPIRATORY: Breath sounds equal bilaterally. No accessory muscle use. ABDOMEN/GI: Abdomen soft, non-tender. Fundus: Firm, non-tender at umbilicus. GENITOURINARY: Light to moderate bleeding. EXTREMITIES: No cyanosis or edema, non-tender, without signs of DVT. Medications and IVs Current Medications Medications (Trade) Dose Ordered Sig/Randi Route Start Time Stop Time Status Last Admin Lactated Ringer's 1,000 ml @ 125 mls/hr Q8H IV 10/26/16 17:02 10/27/16 16:10 Lactated Ringer's 1,000 ml @ 3,000 mls/hr Q20M PRN IV 10/26/16 17:02 Sodium Chloride 1,000 ml @ 100 mls/hr Q10H PRN IV 10/26/16 17:22 (Xylocaine 1% Inj (50 ml)) 0.1 ml UNSCH X1 PRN I-DERMAL 10/26/16 17:15 10/29/16 17:14 (Bicitra Liq) 30 ml STRAINER TENDER PO 10/26/16 17:15 10/30/16 17:14 (fentaNYL INJ) 50 mcg Q1H PRN IV PUSH 10/26/16 17:15 (fentaNYL INJ) 100 mcg Q1H PRN IV PUSH 10/26/16 17:15 10/27/16 09:55 (Xylocaine 1% Inj (50 ml)) 10 ml UNSCH X1 PRN INFIL 10/26/16 17:15 10/28/16 17:14 (Muri-Lube Oil) 10 ml UNSCH PRN TOPICAL 10/26/16 17:15 Oxytocin 500 ml @ 0 mls/hr TITRATE IV 10/27/16 03:00 10/27/16 06:32 Miscellaneous Information No systemic narcotics to be given except... UNSCH PRN .XX 10/27/16 14:45 10/28/16 14:44 Miscellaneous Information DO NOT ADMINISTER ANY ANTICOAGUL... UNSCH PRN .XX 10/27/16 14:45 10/28/16 14:44 Fentanyl/ Bupivacaine HCl 100 ml @ 10 mls/hr TITRATE EPIDURAL 10/27/16 15:00 10/27/16 16:09 (ePHEDrine/NS 25 MG/5 ML SYR) 10 mg UNSCH PRN IV 10/27/16 14:45 10/28/16 14:44 10/27/16 16:24 (NS Flush) 2 ml BID IV FLUSH 10/27/16 21:00 (NS Flush) 2 ml UNSCH PRN IV FLUSH 10/27/16 20:15 10/28/16 05:14 (Tylenol) 650 mg Q4H PRN PO 10/27/16 20:15 10/28/16 05:13 (Motrin) 600 mg Q6H PRN PO 10/27/16 20:15 10/28/16 05:13 (Americaine 20% Top Spr) 1 spray Q4H PRN TOPICAL 10/27/16 20:15 10/28/16 05:12 (Tucks Pads) 1 applic QID PRN TOPICAL 10/27/16 20:15 10/28/16 05:13 (Karen-Colace) 2 tab Q12H PRN PO 10/27/16 20:15 (Ambien) 5 mg HS PRN PO 10/27/16 20:15 (Mag-Al Plus Susp Liq) 15 ml Q8H PRN PO 10/27/16 20:15 (Zofran Odt) 4 mg Q6H PRN PO 10/27/16 20:15 Ampicillin Sodium 2000 mg/Sodium Chloride 100 ml @ 400 mls/hr Q6H IV 10/27/16 22:00 10/28/16 05:12 Gentamicin Sulfate/Sodium Chloride 100 ml @ 200 mls/hr Q8H IV 10/28/16 06:00 10/28/16 05:45 Assessment/Plan Problem List: (1) 40 weeks gestation of ICD Codes: Z3A.40 - 40 weeks gestation of Status: Acute Plan: Assessment/plan: 1. IUP at 40.4 2. Induction of labor: oxyticin per protocol, cervical change to 4 cm dilation 3. GBS negative 4. well-being: Reassuring testing with reactive NST/category 1 heart rate tracing, continue EFM. 5. epidural orders placed sdw Dr. Robles Assessment and Plan Mrs. Che is a 21 y/o G1 now P1 after uncomplicated . -Continue routine care. -Motrin PRN pain. -Patient with postdelivery fever to 102.9 -Patient given Tylenol for fever and started on ampicillin and gentamicin for antibiotic coverage -Encouraged OOB. Advised pelvic rest for 6 wks. -Re: ctrl, she would like to discuss her options at her follow-up appointment. -Anticipate discharge likely tomorrow pending clinical course. vance Robles MD Discharge Planning Pending clinical course Hector Joe MD R2 Oct 28, 2016 08:28
[2016-10-29] MEDS: AMPICILLIN INJ 2,000 MG in SODIUM CHLORIDE 0.9% INJ 100 ML IV SCH ×3 (02:38→14:30)
[2016-10-29] MEDS: GENTAMICIN/SOD CHL 80 MG/100 ML IV SCH ×2 (04:02→12:14)
[2016-10-29] MEDS: IBUPROFEN 600 MG TAB PO PRN (04:13)
[2016-10-29] MEDS: ACETAMINOPHEN 325 MG TAB PO PRN (04:13)
[2016-10-29] MEDS ORDERED: IBUP-232 PO (08:25)
[2016-10-29] MEDS ORDERED: SENN1TAB PO (08:25)
--- NOTE | 2016-10-29 08:25 | HHI.DCPOC ---
Discharge Care Plan Diagnosis: (1) (spontaneous vaginal delivery) Report Symptoms to Your Doctor -Temperature above 100.5 degrees -Redness, of incision or excessive or foul smelling drainage -Unusual pain or calf pain -Increased vaginal bleeding -Painful or difficulty urinating -Feelings of extreme sadness or anxiety after 2 weeks Goals to Promote Your Health * To prevent worsening of your condition and complications * To maintain your health at the optimal level Directions to Meet Your Goals Take your medications as prescribed Follow your dietary instruction Follow activity as directed Ensure plenty of rest for recovery Drink fluids for hydration Keep your appointments as scheduled Take your immunizations and boosters as scheduled If your symptoms worsen call your PCP, if no PCP go to Urgent Care Center or Emergency Room Smoking is Dangerous to Your Health. Avoid second hand smoke Call the 24-hour crisis hotline for domestic abuse at Hector Joe MD R2 Oct 29, 2016 08:25
[2016-10-29] MEDS: SODIUM CHLORIDE 0.9% FLUSH 10 ML FLUSH IV FLUSH SCH (09:00)
[2016-10-29] MEDS: LACTATED RINGER'S 1000 ML INJ 1,000 ML IV SCH (09:02)
--- NOTE | 2016-10-29 10:35 | HHI.OB ---
Subjective Post Day: 2 Remarks Pt seen and examined this morning. day # 2 AFVSS overnight. Decreased lochia. Denies dysuria. No breast tenderness. She is feeding the baby via breast and bottle. Appetite good. No nausea or vomiting. Patient endorses having a bowel movement and passing bowel gas. Ambulating well. Denies calf pain or shortness of breath. Otherwise, she is doing well this morning and has no other concerns. Objective Objective Remarks GENERAL: Well-nourished, well-developed patient. CARDIOVASCULAR: Regular rate and rhythm without murmurs, gallops, or rubs. RESPIRATORY: Breath sounds equal bilaterally. No accessory muscle use. ABDOMEN/GI: Abdomen soft, non-tender. Fundus: Firm, non-tender at umbilicus. GENITOURINARY: Light to moderate bleeding. EXTREMITIES: No cyanosis or edema, non-tender, without signs of DVT. Medications and IVs Current Medications Medications (Trade) Dose Ordered Sig/Randi Route Start Time Stop Time Status Last Admin Lactated Ringer's 1,000 ml @ 125 mls/hr Q8H IV 10/26/16 17:02 10/27/16 16:10 Lactated Ringer's 1,000 ml @ 3,000 mls/hr Q20M PRN IV 10/26/16 17:02 Sodium Chloride 1,000 ml @ 100 mls/hr Q10H PRN IV 10/26/16 17:22 (Xylocaine 1% Inj (50 ml)) 0.1 ml UNSCH X1 PRN I-DERMAL 10/26/16 17:15 10/29/16 17:14 (Bicitra Liq) 30 ml WAGON WINDER PO 10/26/16 17:15 10/30/16 17:14 (fentaNYL INJ) 50 mcg Q1H PRN IV PUSH 10/26/16 17:15 (fentaNYL INJ) 100 mcg Q1H PRN IV PUSH 10/26/16 17:15 10/27/16 09:55 (Muri-Lube Oil) 10 ml UNSCH PRN TOPICAL 10/26/16 17:15 Oxytocin 500 ml @ 0 mls/hr TITRATE IV 10/27/16 03:00 10/27/16 06:32 Fentanyl/ Bupivacaine HCl 100 ml @ 10 mls/hr TITRATE EPIDURAL 10/27/16 15:00 10/27/16 16:09 (NS Flush) 2 ml BID IV FLUSH 10/27/16 21:00 (NS Flush) 2 ml UNSCH PRN IV FLUSH 10/27/16 20:15 10/28/16 05:14 (Tylenol) 650 mg Q4H PRN PO 10/27/16 20:15 10/29/16 04:13 (Motrin) 600 mg Q6H PRN PO 10/27/16 20:15 10/29/16 04:13 (Americaine 20% Top Spr) 1 spray Q4H PRN TOPICAL 10/27/16 20:15 10/28/16 05:12 (Tucks Pads) 1 applic QID PRN TOPICAL 10/27/16 20:15 10/28/16 05:13 (Karen-Colace) 2 tab Q12H PRN PO 10/27/16 20:15 10/28/16 15:03 (Ambien) 5 mg HS PRN PO 10/27/16 20:15 (Mag-Al Plus Susp Liq) 15 ml Q8H PRN PO 10/27/16 20:15 (Zofran Odt) 4 mg Q6H PRN PO 10/27/16 20:15 Gentamicin Sulfate/Sodium Chloride 100 ml @ 200 mls/hr Q8H IV 10/28/16 20:00 10/29/16 04:02 Ampicillin Sodium 2000 mg/Sodium Chloride 100 ml @ 400 mls/hr Q6H IV 10/28/16 20:30 10/29/16 09:06 Assessment/Plan Problem List: (1) 40 weeks gestation of ICD Codes: Z3A.40 - 40 weeks gestation of Status: Acute Plan: Assessment/plan: 1. IUP at 40.4 2. Induction of labor: oxyticin per protocol, cervical change to 4 cm dilation 3. GBS negative 4. well-being: Reassuring testing with reactive NST/category 1 heart rate tracing, continue EFM. 5. epidural orders placed sdw Dr. Robles (2) (spontaneous vaginal delivery) ICD Codes: O80 - Encounter for full-term uncomplicated delivery Status: Acute Assessment and Plan Mrs. Che is a 21 y/o G1 now P1 after uncomplicated . day 2 -Continue routine care. -Motrin PRN pain. -Patient with postdelivery fever to 102.9 -Patient given Tylenol for fever and started on ampicillin and gentamicin for antibiotic coverage -Encouraged OOB. Advised pelvic rest for 6 wks. -Re: ctrl, she would like to discuss her options at her follow-up appointment. -Anticipate discharge today with baby. Discharge pending patient being afebrile for 36 hours (at approximately 1200 on 10/29). vance Lucero MD Discharge Planning Today with baby Hector Joe MD R2 Oct 29, 2016 10:35
== END 2016-10-29 17:05 | disposition home or self-care (01) | DRG 774 ==
LOC: H2EB 15:55 → H1EA 10-27 22:52 → UNDODISIN 10-29 17:05
PROVIDERS: ADMIT Obstetrics & Gynecology; ATTEND Obstetrics & Gynecology
PROC: 10E0XZZ Delivery of Products of Conception, External Approach (ICD-10-PCS; principal; 2016-10-26)
PROC: 0HQ9XZZ Repair Perineum Skin, External Approach (ICD-10-PCS; 2016-10-26)
PROC: 00HU33Z Insertion of Infusion Device into Spinal Canal, Percutaneous Approach (ICD-10-PCS; 2016-10-26)
PROC: 3E0R3CZ (ICD-10-PCS; 2016-10-26)
PROC: 3E033VJ Introduction of Other Hormone into Peripheral Vein, Percutaneous Approach (ICD-10-PCS; 2016-10-26)
DX: O70.0 First degree perineal laceration during delivery (principal); O86.4 Pyrexia of unknown origin following delivery; O48.0 Post-term pregnancy; O69.81X0 Labor and delivery complicated by cord around neck, without compression, not applicable or unspecified; Z37.0 Single live birth; Z3A.40 40 weeks gestation of pregnancy
CPT/HCPCS: 59025; 76937; 81001; 85025; 86900; 86901; 90707; 90715; J0290; J1580; J2590; J3010; J7120